=== PATIENT | male | born 1965 | race Caucasian/White ===

== ENCOUNTER 2024-06-25 12:05 | Outpatient (CLI) | payer OTHER, SELFPAY ==
[2024-06-25 13:01] LABS: Basophils Absolute Auto 0.1 K/mm3 (0.0-0.1); Basophils Percent Auto 0.8 % (0.2-1.2); Eosinophils Absolute Auto 0.1 K/mm3 (0-0.3); Eosinophils Percent Auto 0.7 % (0-4.4); Hematocrit 50.3 % (42.0-52.0); Hemoglobin 16.8 g/dL (14.0-18.0); Immature Granulocyte Absolute 0.03 K/mm3 (0.00-0.031); Immature Granulocyte Percent A 0.4 % (0-0.5); Lymphocytes Absolute Auto 1.53 K/mm3 (0.9-3.2); Mean Corpuscular HGB Conc 33.4 g/dl (32-36); Mean Corpuscular Hemoglobin 32.6 pg (26-34); Mean Corpuscular Volume 97.7 fl (80-100); Mean Platelet Volume 10.4 fl (7.4-10.4); Monocytes Absolute Auto 0.7 K/mm3 (0.1-0.6); Monocytes Percent Auto 7.8 % (2.6-8.5); Neutrophils Absolute Auto 6.2 K/mm3 (1.3-6.7); Neutrophils Percent Auto 72.3 % (45.5-73.1); Platelet Count Result 356 k/mm3 (150-375); Red Blood Count 5.15 M/mm3 (4.6-6.20); Red Cell Distribution Width 11.9 % (11.5-14.5); White Blood Count 8.5 K/mm3 (4.5-10.0)
[2024-06-25 13:15] LABS: INR 0.9; Prothrombin Time 12.8 Seconds (11.1-14.7)
[2024-06-25 13:39] LABS: Alanine Aminotransferase 21 U/L (6-50); Albumin Level 4.5 g/dL (3.5-5.1); Alkaline Phosphatase 94 U/L (38-126); Anion Gap 11 mmol/L (4-12); Aspartate Amino Transferase 31 U/L (17-59); Bilirubin,Total 0.8 mg/dL (0.2-1.3); Blood Urea Nitrogen 9 mg/dL (9-20); Calcium 9.3 mg/dL (8.4-10.2); Carbon Dioxide 32 mmol/L (22-30); Chloride 94 mmol/L (98-107); Cholesterol 248 mg/dL (0-200); Estimated Glomerular Filt Rate > 60; Glucose 108 mg/dL (65-110); HDL Direct 110 mg/dL; Sodium 137 mmol/L (137-145); Triglycerides 85 mg/dL (<150)
[2024-06-25 13:50] LABS: LDL Cholesterol Direct 127 mg/dL
[2024-06-25 14:06] LABS: Hepatitis C Virus Antibody Negative (Negative)
[2024-06-25 14:38] LABS: Prostate Specific Antigen 1.5 ng/mL (< OR = 4.0)
[2024-06-26 00:26] LABS: Folic Acid 6.8 ng/mL (2.76->20)
--- OUTSIDE RECORDS SUMMARY | 2024-06-27 18:10 | XMS_ITS | Referral Summary ---
Author Organization [facility] Address [address] [place] [address] Care Team Providers Care Hand Printed Circuit Board Assembler Name Role Phone Unavailable Primary Care Provider Unavailabl e Source Comments [facility],non-owned Affiliates and Associated Physician Practices is amultiple site organization consisting of ambulatory clinics and hospital sitesin [place], [place], [place] and [place]. This disclosure is being madepursuant to the Care Everywhere program and may not contain all information available regarding this patient. Last updated 18.[facility] Allergies No known active allergies Social History Tobacco Use Types Packs/Day Years Used Date Smoking Tobacco: Never Assessed Sex and Gender Information Value Date Recorded Sex Assigned at Not on file Gender Identity Not on file Sexual Orientation Not on file Plan of Treatment Not on file Administered Medications
--- OUTSIDE RECORDS SUMMARY | 2024-06-27 18:10 | XMS_ITS | Clinical Summary ---
Author Organization [facility] Address [address] [place] [address] Care Team Providers Care Zoo Keeper Name Role Phone Unavailable Primary Care Provider Unavailabl e Source Comments [facility],non-owned Affiliates and Associated Physician Practices is amultiple site organization consisting of ambulatory clinics and hospital sitesin [place], [place], [place] and [place]. This disclosure is being madepursuant to the Care Everywhere program and may not contain all information available regarding this patient. Last updated 18.[facility] Allergies No known active allergies Social History Tobacco Use Types Packs/Day Years Used Date Smoking Tobacco: Never Assessed Sex and Gender Information Value Date Recorded Sex Assigned at Not on file Gender Identity Not on file Sexual Orientation Not on file Plan of Treatment Health Maintenance Due Date Last Done Comments COLOGUARD (AGES 45-75) - COL ON CA SCREENING 1964 COLON MONITORING 1964 COLONOSCOPY - COLON CA SCREENING 1964 CT COLONOGRAPHY - COLON CA SCREENING 1964 Colorectal Cancer Screening 1964 FIT - COLON CA SCREENING 1964 FLEX SIG - COLON CA SCREENING 1964 LIPID TESTING 1964 HIV SCREENING 1979 HEPATITIS C SCREENING 03/21/1982 DTAP/TDAP/TD VACCINES (1 - Tdap) 1983 PNEUMOCOCCAL VACCINE 50+ (1 of 1 - PCV) 2014 ZOSTER VACCINE (1 of 2) 2014 COVID-19 VACCINE ( - 2023-2 5 season) 2024 INFLUENZA VACCINE (#1) 2024 DEPRESSION SCREENING 06/05/2024 Respiratory Syncytial Virus (RSV) Vaccine Pt: or over 60 yrs (1 - 1-dose 75+ series) 2039 HEPATITIS B VACCINE Aged Out No longe r eligible based on patient's age to complete this topic HIB VACCINE Aged Out No longer eligi ble based on patient's age to complete this topic HPV VACCINE Aged Out No longer eligi ble based on patient's age to complete this topic MENINGOCOCCAL (Group B) VACCINE Aged Out No longer eligible based on patient's age to complete this topic MENINGOCOCCAL VACCINE Aged Out No evan steve eligible based on patient's age to complete this topic PNEUMOCOCCAL VACCINE Aged Out No long er eligible based on patient's age to complete this topic
--- OUTSIDE RECORDS SUMMARY | 2024-06-27 18:10 | XMS_ITS | Patient Health Summary ---
Author Organization [facility] Address [address] [place] [address] Care Team Providers Care Machinery Dismantler Name Role Phone Unavailable Primary Care Provider Unavailabl e Note from [facility],non-owned Affiliates and Associated Physician Practices is amultiple site organization consisting of ambulatory clinics and hospital sitesin [place], [place], [place] and [place]. This disclosure is being madepursuant to the Care Everywhere program and may not contain all information available regarding this patient. Last updated 18.[facility] Allergies No known active allergies Social History Tobacco Use Types Packs/Day Years Used Date Smoking Tobacco: Never Assessed Sex and Gender Information Value Date Recorded Sex Assigned at Not on file Gender Identity Not on file Sexual Orientation Not on file Procedures * SKIN TEST PPD - POINT OF CARE(Performed 06/14/2020) Performed for PPD screening test Results * SKIN TEST PPD - POINT OF CARE (06/14/2020 10:10 AM SURGICAL ORDERLY) PPD 0mm normal, ppd placed on 06/12/2020 @ 0930, ppd read on 06/14/2020 @ 1010 [facility] Other MISCELLANEOUS SAMPLE S / Unknown 06/14/2020 10:10 AM SURGICAL ORDERLY Mikal Dorsey OCEAN LIFEGUARD-SPECIAL INSPECTOR LAB - POINT OF CA RE ORDERABLES [facility] [address] [place] [address], [facility] [phone]
== END 2024-06-25 12:06 | disposition home or self-care (01) ==
PROVIDERS: PCP Nurse Practitioner Family; Visit Provider Nurse Practitioner Family
DX: G25.81 Restless legs syndrome (principal); F10.10 Alcohol abuse, uncomplicated; I10 Essential (primary) hypertension; Z13.220 Encounter for screening for lipoid disorders; Z72.0 Tobacco use
CPT/HCPCS: 36415; 80053; 80061; 82607; 82746; 83735; 84153; 84443; 85025; 85610; 86803; G0103

== ENCOUNTER 2024-06-28 09:52 | Outpatient (CLI) | payer OTHER, SELFPAY ==
--- NOTE | 2024-06-28 13:19 | P.PCNPFT_ITS ---
PFT Procedure Performed PFT Procedure Performed Spirometry with Pre/Post Bronchodilator Plethysmography (Lung Vol) Diffusing Cap (DLCO) Flow Vol Loop PFT Interpretation DOS: 06/28/2024 REQUESTING: Serene Dallas APRN REASON FOR TESTING: COPD PULMONARY FUNCTION TESTS Results are reliable and reproducible. Repeatability of spirometry FEV1 maneuver pre and post bronchodilator is Grade A. Brad: GLI 2012 reference equations were used. Spirometry: The pre-bronchodilator FEV1 is 1.56 L, 49%, decreased. The pre- bronchodilator FVC is 2.83 L, 70%, decreased. The FEV1/FVC ratio is 55%, decreased, consistent with airflow obstruction. After bronchodilator, the FEV1 is 1.45 L, 46% predicted, -7%. After bronchodilator, the FVC is 2. Eight 1 L, 69%,-1%. The FEV1/FVC ratio is 52%, decreased, consistent with airflow obstruction. Lung volumes: The total lung capacity is 7.38 L, 119%, normal. The residual volume is 4.36 L, 215%, greatly increased consistent with air trapping. The RV/TLC is 59%, increased consistent with air trapping. Airway resistance is increased. Diffusion: DLCO is 15.5, 58%, decreased. The DLCO/VA is 3.79, 85%, normal. Flow volume loop: The flow volume loop shows severe coving of the expiratory limb consistent with airflow obstruction. IMPRESSION: This study shows a moderately severe obstructive ventilatory impairment without response to bronchodilator, severe air trapping and a mild diffusion impairment which corrects for alveolar volume. Lack of response to bronchodilator should not preclude use if clinically indicated. No prior studies for comparison. Scarlet Marquez MD
== END 2024-06-28 09:53 | disposition home or self-care (01) ==
PROVIDERS: PCP Nurse Practitioner Family; Visit Provider Nurse Practitioner Family
DX: J44.9 Chronic obstructive pulmonary disease, unspecified (principal); Z72.0 Tobacco use
CPT/HCPCS: 94060; 94726; 94729

== ENCOUNTER 2024-06-28 14:24 | Outpatient (CLI) | payer OTHER, SELFPAY ==
--- NOTE | ~2024-06-28 | CT_ITS ---
EXAMINATION:CT lung screening DATE: 06/28/2024 14:41 INDICATION: Personal history of nicotine dependence. Current smoker with 45 pack year history. TECHNIQUE: Computed tomography (CT) of the chest was performed without intravenous contrast. Automate d exposure control and iterative reconstruction technique were employed. The dose-length product (DLP ) was 71.71 mGy-cm. COMPARISON: None. FINDINGS: There is mild emphysema. Calcified left lung nodules are consistent with old granulomatous disease. There are calcified pleural plaques bilaterally, which may be seen with asbestos exposure. T here is mild atelectasis bilaterally. No pleural effusion. The heart size is normal. There are moseley ry artery calcifications. No pericardial effusion. There is mild thoracic spondylosis. IMPRESSION: 1. Lung-RADS category 1: Negative. Continue annual screening with noncontrast low-dose chest CT in 12 months. Reviewed, dictated and finalized at location B. OB IMPRESSION: 1. Lung-RADS category 1: Negative. Continue annual screening with noncontrast l ow-dose chest CT in 12 months.
== END 2024-06-28 14:25 | disposition home or self-care (01) ==
LOC: MICIMG 14:25
PROVIDERS: PCP Nurse Practitioner Family; Visit Provider Nurse Practitioner Family
DX: Z12.2 Encounter for screening for malignant neoplasm of respiratory organs (principal); Z87.891 Personal history of nicotine dependence
CPT/HCPCS: 71271